=== PATIENT | female | born 1975 ===

== ENCOUNTER → 2017-05-07 | Outpatient (CLI) | payer OTHER | LOC: MC.RAD 12:43 | DX: Z12.31 Encounter for screening mammogram for malignant neoplasm of breast (principal); N63.10 Unspecified lump in the right breast, unspecified quadrant ==

== ENCOUNTER → 2017-05-14 | Outpatient (CLI) | payer OTHER | LOC: MC.RAD 07:38 | DX: N63.10 Unspecified lump in the right breast, unspecified quadrant (principal) ==